=== PATIENT | female | born 1940 | race Caucasian/White ===

== ENCOUNTER 2016-12-08 20:26 | Outpatient (CLI) | payer MEDICARE, MEDICAID | END 2016-12-08 20:27 | disposition home or self-care (01) | DX: N39.0 Urinary tract infection, site not specified (principal); J02.0 Streptococcal pharyngitis ==

== ENCOUNTER 2016-12-17 | Outpatient (CLI) | payer MEDICARE, MEDICAID | END 2016-12-17 09:47 | disposition critical access hospital (66) | DX: R06.00 Dyspnea, unspecified (principal) | CPT/HCPCS: A0425; A0427 ==

== ENCOUNTER 2016-12-17 09:51 | Inpatient (IN) | payer MEDICARE, MEDICAID ==
[2016-12-17] MEDS ORDERED: IPRATROPIUM/ALBUTEROL 3 ML NEB INH STA (10:20)
[2016-12-17] MEDS ORDERED: IPRATROPIUM/ALBUTEROL 3 ML NEB INH ONE (10:46)
[2016-12-17] MEDS ORDERED: SODIUM CHLORIDE 0.9% 500 ML IV ONE (11:57)
[2016-12-17] MEDS ORDERED: ACETAMINOPHEN 325 MG TABLET PO PRN (12:25)
[2016-12-17] MEDS ORDERED: oxyCODONE 5 MG TABLET PO PRN ×2 (12:25)
[2016-12-17] MEDS ORDERED: PROCHLORPERAZINE 10 MG/2 ML VIAL IVP PRN (12:25)
[2016-12-17] MEDS ORDERED: ONDANSETRON 4 MG/2 ML VIAL IVP PRN (12:25)
[2016-12-17] MEDS ORDERED: SODIUM CHLORIDE 0.9% 1,000 ML IV SCH (13:00)
[2016-12-17] MEDS ORDERED: SODIUM CHLORIDE 0.9% 1,000 ML IV ONE ×2 (14:00→19:18)
[2016-12-17] MEDS: methylPREDNISolone SUCCINATE 125 MG/2 ML VIAL IVP SCH ×2 (14:21→22:14)
[2016-12-17] MEDS: CITALOPRAM 10 MG TABLET PO SCH (14:23)
[2016-12-17] MEDS: ENOXAPARIN 40 MG/0.4 ML SYRINGE SUBQ SCH (14:23)
[2016-12-17] MEDS: SODIUM CHLORIDE FLUSH 0.9% 10 ML SYRINGE IVP SCH ×3 (14:24→22:15)
[2016-12-17] MEDS: LOSARTAN 50 MG TABLET PO SCH (14:24)
[2016-12-17] MEDS ORDERED: PIPERACILLIN/TAZOBACTAM 4.5 GM in SODIUM CHLORIDE 0.9% MINIBAG 100 ML IV ONE ×2 (16:00→18:00)
[2016-12-17] MEDS: IPRATROPIUM/ALBUTEROL 3 ML NEB INH SCH ×2 (16:30→21:00)
[2016-12-17] MEDS ORDERED: IOPAMIDOL-300 100 ML VIAL IVP ONE (16:41)
[2016-12-17] MEDS: SACCHAROMYCES BOULARDII 250 MG CAPSULE PO SCH (16:47)
[2016-12-17] MEDS: MORPHINE 2 MG/ML SYRINGE IVP PRN ×3 (16:53→20:59)
[2016-12-17] MEDS ORDERED: PIPERACILLIN/TAZOBACTAM 4.5 GM in SODIUM CHLORIDE 0.9% MINIBAG 100 ML IV SCH (17:00)
[2016-12-17] MEDS ORDERED: HYDROmorphone 1 MG/ML SYRINGE IVP ONE (18:06)
[2016-12-17] MEDS: SODIUM CHLORIDE FLUSH 0.9% 10 ML SYRINGE IVP PRN (18:16)
[2016-12-17] MEDS: DEXTROSE 5%-0.9% NACL 1,000 ML IV SCH (19:52)
[2016-12-17] MEDS: BUDESONIDE 0.5 MG/2 ML NEB INH SCH (21:00)
[2016-12-17] MEDS ORDERED: clonazePAM 0.5 MG TABLET PO SCH (21:00)
[2016-12-17] MEDS: guaiFENesin 600 MG TABLET PO SCH (21:01)
[2016-12-17] MEDS: traZODone 50 MG TABLET PO SCH (21:01)
[2016-12-17] MEDS ORDERED: LORazepam 2 MG/ML SYRINGE IVP PRN (21:13)
[2016-12-17] MEDS: HYDROmorphone 1 MG/ML SYRINGE IVP PRN (22:09)
[2016-12-17] MEDS: PIPERACILLIN/TAZOBACTAM 4.5 GM in SODIUM CHLORIDE 0.9% MINIBAG 100 ML IV SCH (22:23)
[2016-12-18] MEDS: methylPREDNISolone SUCCINATE 125 MG/2 ML VIAL IVP SCH ×3 (17:38→22:05)
[2016-12-18] MEDS: DEXTROSE 5%-0.9% NACL 1,000 ML IV SCH (17:38)
[2016-12-18] MEDS: PIPERACILLIN/TAZOBACTAM 4.5 GM in SODIUM CHLORIDE 0.9% MINIBAG 100 ML IV SCH ×2 (17:39→17:41)
[2016-12-18] MEDS: BUDESONIDE 0.5 MG/2 ML NEB INH SCH ×2 (17:39→20:25)
[2016-12-18] MEDS: SACCHAROMYCES BOULARDII 250 MG CAPSULE PO SCH ×2 (17:39→18:44)
[2016-12-18] MEDS: POTASSIUM CHLORIDE 10 MEQ CAPSULE PO SCH (17:39)
[2016-12-18] MEDS: PANTOPRAZOLE 40 MG VIAL IVP SCH (17:39)
[2016-12-18] MEDS: IPRATROPIUM/ALBUTEROL 3 ML NEB INH SCH ×2 (17:39→17:41)
[2016-12-18] MEDS: FEXOFENADINE 60 MG TABLET PO SCH (17:39)
[2016-12-18] MEDS: FLUTICASONE NASAL SPRAY NAS SCH (17:39)
[2016-12-18] MEDS: ENOXAPARIN 40 MG/0.4 ML SYRINGE SUBQ SCH (17:39)
[2016-12-18] MEDS: CITALOPRAM 10 MG TABLET PO SCH (17:39)
[2016-12-18] MEDS: SODIUM CHLORIDE FLUSH 0.9% 10 ML SYRINGE IVP SCH ×3 (17:39→22:06)
[2016-12-18] MEDS: guaiFENesin 600 MG TABLET PO SCH ×2 (17:39→20:40)
[2016-12-18] MEDS: POLYETHYLENE GLYCOL 3350 17 GM PACKET PO SCH (17:40)
[2016-12-18] MEDS: ROFLUMILAST 500 MCG PO SCH (17:40)
[2016-12-18] MEDS: LOSARTAN 50 MG TABLET PO SCH (17:40)
[2016-12-18] MEDS: DEXTROSE 5% 1,000 ML IV SCH (18:44)
[2016-12-18] MEDS: IPRATROPIUM/ALBUTEROL 3 ML NEB INH PRN (20:25)
[2016-12-18] MEDS: VANCOMYCIN INJ 1 GM in SODIUM CHLORIDE 0.9% 250 ML IV SCH (20:36)
[2016-12-18] MEDS: traZODone 50 MG TABLET PO SCH (22:00)
[2016-12-19] MEDS: PIPERACILLIN/TAZOBACTAM 3.375 GM in SODIUM CHLORIDE 0.9% MINIBAG 100 ML IV SCH ×2 (00:31→06:19)
[2016-12-19] MEDS: DEXTROSE 5% 1,000 ML IV SCH ×2 (00:31→16:11)
[2016-12-19] MEDS: HYDROmorphone 1 MG/ML SYRINGE IVP PRN ×4 (00:50→16:29)
[2016-12-19] MEDS: SODIUM CHLORIDE FLUSH 0.9% 10 ML SYRINGE IVP SCH ×3 (02:08→21:50)
[2016-12-19] MEDS: methylPREDNISolone SUCCINATE 125 MG/2 ML VIAL IVP SCH ×3 (06:19→21:50)
[2016-12-19] MEDS: PANTOPRAZOLE 40 MG VIAL IVP SCH (06:19)
[2016-12-19] MEDS: IPRATROPIUM/ALBUTEROL 3 ML NEB INH PRN ×4 (07:30→20:24)
[2016-12-19] MEDS: BUDESONIDE 0.5 MG/2 ML NEB INH SCH ×2 (07:30→20:24)
[2016-12-19] MEDS: DOCUSATE SODIUM 250 MG CAPSULE PO SCH (08:26)
[2016-12-19] MEDS: POLYETHYLENE GLYCOL 3350 17 GM PACKET PO SCH (08:26)
[2016-12-19] MEDS: ENOXAPARIN 40 MG/0.4 ML SYRINGE SUBQ SCH (08:26)
[2016-12-19] MEDS: SENNA 8.6 MG TABLET PO SCH (08:27)
[2016-12-19] MEDS: POTASSIUM CHLORIDE 10 MEQ CAPSULE PO SCH (08:27)
[2016-12-19] MEDS: LOSARTAN 50 MG TABLET PO SCH (08:27)
[2016-12-19] MEDS: SACCHAROMYCES BOULARDII 250 MG CAPSULE PO SCH ×2 (08:27→16:21)
[2016-12-19] MEDS: CITALOPRAM 10 MG TABLET PO SCH (08:27)
[2016-12-19] MEDS: FEXOFENADINE 60 MG TABLET PO SCH (08:27)
[2016-12-19] MEDS: VANCOMYCIN INJ 1 GM in SODIUM CHLORIDE 0.9% 250 ML IV SCH ×2 (08:28→20:20)
[2016-12-19] MEDS: FLUTICASONE NASAL SPRAY NAS SCH (08:29)
[2016-12-19] MEDS: guaiFENesin 600 MG TABLET PO SCH ×2 (08:38→20:23)
[2016-12-19] MEDS: ROFLUMILAST 500 MCG PO SCH (08:49)
[2016-12-19] MEDS: POTASSIUM CHLORIDE 20 MEQ TABLET PO SCH (10:20)
[2016-12-19] MEDS: cefTRIAXone 2 GM in SODIUM CHLORIDE 0.9% MINIBAG 100 ML IV SCH (10:20)
[2016-12-19] MEDS: NEUTRA-PHOS 250 MG TABLET PO SCH ×2 (12:03→16:21)
[2016-12-19] MEDS: SODIUM CHLORIDE FLUSH 0.9% 10 ML SYRINGE IVP PRN ×4 (16:28→21:50)
[2016-12-19] MEDS ORDERED: oxyCODONE 5 MG TABLET PO PRN (20:12)
[2016-12-19] MEDS: traZODone 50 MG TABLET PO SCH (20:23)
[2016-12-19] MEDS: oxyCODONE ER 10 MG TABLET PO SCH (20:39)
[2016-12-20] MEDS: HYDROmorphone 1 MG/ML SYRINGE IVP PRN ×3 (01:00→14:54)
[2016-12-20] MEDS: SODIUM CHLORIDE FLUSH 0.9% 10 ML SYRINGE IVP SCH ×3 (06:31→21:58)
[2016-12-20] MEDS: PANTOPRAZOLE 40 MG VIAL IVP SCH (06:31)
[2016-12-20] MEDS: methylPREDNISolone SUCCINATE 125 MG/2 ML VIAL IVP SCH ×3 (06:31→21:57)
[2016-12-20] MEDS: ENOXAPARIN 40 MG/0.4 ML SYRINGE SUBQ SCH (08:18)
[2016-12-20] MEDS: cefTRIAXone 2 GM in SODIUM CHLORIDE 0.9% MINIBAG 100 ML IV SCH (08:18)
[2016-12-20] MEDS: POTASSIUM CHLORIDE 20 MEQ TABLET PO SCH (08:18)
[2016-12-20] MEDS: VANCOMYCIN INJ 1 GM in SODIUM CHLORIDE 0.9% 250 ML IV SCH ×2 (08:18→20:33)
[2016-12-20] MEDS: SACCHAROMYCES BOULARDII 250 MG CAPSULE PO SCH ×2 (08:19→16:25)
[2016-12-20] MEDS: oxyCODONE ER 10 MG TABLET PO SCH ×2 (08:19→20:32)
[2016-12-20] MEDS: FEXOFENADINE 60 MG TABLET PO SCH (08:19)
[2016-12-20] MEDS: guaiFENesin 600 MG TABLET PO SCH ×2 (08:19→20:33)
[2016-12-20] MEDS: DOCUSATE SODIUM 250 MG CAPSULE PO SCH (08:19)
[2016-12-20] MEDS: NEUTRA-PHOS 250 MG TABLET PO SCH ×3 (08:19→16:25)
[2016-12-20] MEDS: LOSARTAN 50 MG TABLET PO SCH (08:19)
[2016-12-20] MEDS: POLYETHYLENE GLYCOL 3350 17 GM PACKET PO SCH (08:20)
[2016-12-20] MEDS: SENNA 8.6 MG TABLET PO SCH (08:20)
[2016-12-20] MEDS: ROFLUMILAST 500 MCG PO SCH (08:20)
[2016-12-20] MEDS: CITALOPRAM 10 MG TABLET PO SCH (12:07)
[2016-12-20] MEDS: POTASSIUM CHLOR 10 MEQ/100 ML 100 ML IV SCH ×6 (12:08→23:00)
[2016-12-20] MEDS: DEXTROSE 5% 1,000 ML IV SCH ×2 (12:08→17:20)
[2016-12-20] MEDS: FLUTICASONE NASAL SPRAY NAS SCH (12:08)
[2016-12-20] MEDS: MORPHINE 2 MG/ML SYRINGE IVP PRN ×2 (13:33→23:54)
[2016-12-20] MEDS: BUDESONIDE 0.5 MG/2 ML NEB INH SCH ×2 (19:00→20:00)
[2016-12-20] MEDS: IPRATROPIUM/ALBUTEROL 3 ML NEB INH PRN (20:00)
[2016-12-20] MEDS: traZODone 50 MG TABLET PO SCH (20:32)
[2016-12-20] MEDS: SODIUM CHLORIDE FLUSH 0.9% 10 ML SYRINGE IVP PRN ×2 (21:58→23:55)
[2016-12-21] MEDS: POTASSIUM CHLOR 10 MEQ/100 ML 100 ML IV SCH ×2 (00:10→01:21)
[2016-12-21] MEDS: PANTOPRAZOLE 40 MG VIAL IVP SCH (06:12)
[2016-12-21] MEDS: methylPREDNISolone SUCCINATE 125 MG/2 ML VIAL IVP SCH (06:12)
[2016-12-21] MEDS: SODIUM CHLORIDE FLUSH 0.9% 10 ML SYRINGE IVP SCH ×3 (06:13→22:10)
[2016-12-21] MEDS: BUDESONIDE 0.5 MG/2 ML NEB INH SCH ×2 (09:20→20:20)
[2016-12-21] MEDS: IPRATROPIUM/ALBUTEROL 3 ML NEB INH PRN (09:20)
[2016-12-21] MEDS: DEXTROSE 5% 1,000 ML IV SCH ×3 (09:43→18:33)
[2016-12-21] MEDS: cefTRIAXone 2 GM in SODIUM CHLORIDE 0.9% MINIBAG 100 ML IV SCH (09:47)
[2016-12-21] MEDS: POTASSIUM CHLORIDE 20 MEQ TABLET PO SCH (09:51)
[2016-12-21] MEDS: NEUTRA-PHOS 250 MG TABLET PO SCH ×3 (09:51→17:16)
[2016-12-21] MEDS: CITALOPRAM 10 MG TABLET PO SCH (09:51)
[2016-12-21] MEDS: SACCHAROMYCES BOULARDII 250 MG CAPSULE PO SCH ×2 (09:51→17:13)
[2016-12-21] MEDS: ENOXAPARIN 40 MG/0.4 ML SYRINGE SUBQ SCH (09:52)
[2016-12-21] MEDS: FEXOFENADINE 60 MG TABLET PO SCH (09:52)
[2016-12-21] MEDS: oxyCODONE ER 10 MG TABLET PO SCH ×2 (09:52→22:02)
[2016-12-21] MEDS: guaiFENesin 600 MG TABLET PO SCH ×2 (09:52→22:01)
[2016-12-21] MEDS: DOCUSATE SODIUM 250 MG CAPSULE PO SCH (09:53)
[2016-12-21] MEDS: POLYETHYLENE GLYCOL 3350 17 GM PACKET PO SCH (09:54)
[2016-12-21] MEDS: SENNA 8.6 MG TABLET PO SCH (09:54)
[2016-12-21] MEDS: MORPHINE 2 MG/ML SYRINGE IVP PRN (09:56)
[2016-12-21] MEDS: SODIUM CHLORIDE FLUSH 0.9% 10 ML SYRINGE IVP PRN (09:56)
[2016-12-21] MEDS: LOSARTAN 50 MG TABLET PO SCH (10:17)
[2016-12-21] MEDS: ROFLUMILAST 500 MCG PO SCH (10:26)
[2016-12-21] MEDS: FLUTICASONE NASAL SPRAY NAS SCH (13:59)
[2016-12-21] MEDS: traZODone 50 MG TABLET PO SCH (22:02)
[2016-12-21] MEDS: methylPREDNISolone SUCCINATE 40 MG/ML VIAL IVP SCH (22:02)
[2016-12-22] MEDS: DEXTROSE 5% 1,000 ML IV SCH (02:46)
[2016-12-22] MEDS: PANTOPRAZOLE 40 MG VIAL IVP SCH (05:59)
[2016-12-22] MEDS: BUDESONIDE 0.5 MG/2 ML NEB INH SCH (07:30)
[2016-12-22] MEDS: IPRATROPIUM/ALBUTEROL 3 ML NEB INH PRN ×2 (07:30→11:15)
[2016-12-22] MEDS: cefTRIAXone 2 GM in SODIUM CHLORIDE 0.9% MINIBAG 100 ML IV SCH (08:52)
[2016-12-22] MEDS: ENOXAPARIN 40 MG/0.4 ML SYRINGE SUBQ SCH (08:53)
[2016-12-22] MEDS: POLYETHYLENE GLYCOL 3350 17 GM PACKET PO SCH (08:56)
[2016-12-22] MEDS: SENNA 8.6 MG TABLET PO SCH (08:57)
[2016-12-22] MEDS: SACCHAROMYCES BOULARDII 250 MG CAPSULE PO SCH (08:57)
[2016-12-22] MEDS: oxyCODONE ER 10 MG TABLET PO SCH (08:58)
[2016-12-22] MEDS: POTASSIUM CHLORIDE 20 MEQ TABLET PO SCH (08:59)
[2016-12-22] MEDS: CITALOPRAM 10 MG TABLET PO SCH (08:59)
[2016-12-22] MEDS: methylPREDNISolone SUCCINATE 40 MG/ML VIAL IVP SCH (08:59)
[2016-12-22] MEDS: NEUTRA-PHOS 250 MG TABLET PO SCH (09:00)
[2016-12-22] MEDS: LOSARTAN 50 MG TABLET PO SCH (09:00)
[2016-12-22] MEDS: FEXOFENADINE 60 MG TABLET PO SCH (09:01)
[2016-12-22] MEDS: guaiFENesin 600 MG TABLET PO SCH (09:01)
[2016-12-22] MEDS: FLUTICASONE NASAL SPRAY NAS SCH (09:02)
[2016-12-22] MEDS: SODIUM CHLORIDE FLUSH 0.9% 10 ML SYRINGE IVP PRN (09:02)
[2016-12-22] MEDS ORDERED: MIN OIL/DIMETHICON/COCONUT OIL 92 GM TUBE TOP ONE (10:15)
[2016-12-22] MEDS: SODIUM CHLORIDE FLUSH 0.9% 10 ML SYRINGE IVP SCH (12:00)
[2016-12-22] MEDS: ROFLUMILAST 500 MCG PO SCH (12:03)
[2016-12-22] MEDS: DOCUSATE SODIUM 250 MG CAPSULE PO SCH (12:03)
== END 2016-12-22 11:48 | DRG 871 ==
PROC: 3E0336Z Introduction of Nutritional Substance into Peripheral Vein, Percutaneous Approach (ICD-10-PCS; principal; 2016-12-18)
DX: A41.01 Sepsis due to Methicillin susceptible Staphylococcus aureus (principal); J18.9 Pneumonia, unspecified organism; R09.02 Hypoxemia; J44.9 Chronic obstructive pulmonary disease, unspecified; I11.0 Hypertensive heart disease with heart failure; I50.9 Heart failure, unspecified; K21.9 Gastro-esophageal reflux disease without esophagitis; K59.09 Other constipation; F98.0 Enuresis not due to a substance or known physiological condition; F41.9 Anxiety disorder, unspecified; J18.8 Other pneumonia, unspecified organism; J44.0 Chronic obstructive pulmonary disease with (acute) lower respiratory infection; J44.1 Chronic obstructive pulmonary disease with (acute) exacerbation; N17.9 Acute kidney failure, unspecified; E46 Unspecified protein-calorie malnutrition; E87.0 Hyperosmolality and hypernatremia; N39.0 Urinary tract infection, site not specified; E86.0 Dehydration; Z68.26 Body mass index [BMI] 26.0-26.9, adult; E87.6 Hypokalemia; E83.39 Other disorders of phosphorus metabolism; B96.20 Unspecified Escherichia coli [E. coli] as the cause of diseases classified elsewhere; I10 Essential (primary) hypertension; E78.5 Hyperlipidemia, unspecified; R19.7 Diarrhea, unspecified; G89.29 Other chronic pain; R60.0 Localized edema; M54.9 Dorsalgia, unspecified; F32.9 Major depressive disorder, single episode, unspecified; Z87.891 Personal history of nicotine dependence; Z79.891 Long term (current) use of opiate analgesic; Z79.51 Long term (current) use of inhaled steroids; Z79.52 Long term (current) use of systemic steroids; Z79.899 Other long term (current) drug therapy; Z99.81 Dependence on supplemental oxygen; Z66 Do not resuscitate